=== PATIENT | male | born 1980 | race Caucasian/White ===

== ENCOUNTER → 2019-07-23 | Outpatient (CLI) | payer OTHER ==
--- NOTE | 2019-07-23 12:12 | RAD ---
EXAM: Cervical spine, 4 views; lumbar spine, 3 views. HISTORY: Pain. COMPARISON: None. FINDINGS: Cervical spine: 4 views of cervical spine are obtained. There is no significant listhesis. There is mild developmental or degenerative decreased vertebral body height at C6. There is endplate remodeling at C6-C7. No fracture is seen. There is a right facet arthropathy probably at the mid cervical levels. Lumbar spine: 3 views of the lumbar spine are obtained. There is no significant listhesis. The vertebral bodies are normal in height. There is slight disc space narrowing and facet arthropathy at the lumbosacral junction. IMPRESSION: 1. No acute osseous finding. 2. Mild degenerative change involving the cervical spine, predominantly at C6-C7. 3. Mild degenerative change at the lumbosacral junction. Electronically signed by: Nimo Wilde MD (07/23/2019 12:09 PM) [id number]
== END | disposition home or self-care (01) ==
LOC: DXRAD 10:55
PROVIDERS: ATTEND Family Medicine
DX: M47.812 Spondylosis without myelopathy or radiculopathy, cervical region (principal); M47.816 Spondylosis without myelopathy or radiculopathy, lumbar region; M12.88 Other specific arthropathies, not elsewhere classified, other specified site; M48.061 Spinal stenosis, lumbar region without neurogenic claudication
CPT/HCPCS: 72040; 72100